=== PATIENT | female | born 1995 | race Caucasian/White ===

== ENCOUNTER → 2016-03-03 | Outpatient (CLI) | payer OTHER ==
[2016-03-03 14:14] LABS: BASO # 0.2 K/mm3 (0.0-0.2); BASO % 1.3 % (0.0-1.0); EOS # 0.1 K/mm3 (0.0-0.50); EOS % 0.9 % (0.0-3.0); LARGE UNSTAINED CELL # 0.2 K/mm3 (0.0-0.4); LARGE UNSTAINED CELL % 1.5 % (0.0-4.0); LYMPH # 2.8 K/mm3 (1.5-6.5); MEAN CORPUSCULAR HGB CONC 34.6 g/dl (32.0-36.5); MEAN CORPUSCULAR VOLUME 83.9 fl (80.0-96.0); MONO # 0.5 K/mm3 (0.0-0.8); MONO % 4.3 % (0.0-5.0); NEUTROPHILS # 7.5 K/mm3 (1.8-7.7); PLATELET COUNT, AUTOMATED 315 k/mm3 (150-450); RED CELL DISTRIBUTION WIDTH 12.4 % (11.5-14.5); WHITE BLOOD COUNT 11.1 K/mm3 (4.0-10.0)
[2016-03-03 15:29] LABS: HBsAg Prenatal NEGATIVE (NEGATIVE)
[2016-03-04 12:36] LABS: HIV SCRN NEGATIVE (NEGATIVE); HIV SCRN1 NEGATIVE (NEGATIVE)
[2016-03-04 12:37] LABS: CONTROL LINE INT CTR LINE PRESENT
== END ==
LOC: M LAB 13:47
PROVIDERS: ATTEND Advanced Practice Midwife
DX: Z34.81 Encounter for supervision of other normal pregnancy, first trimester (principal)

== ENCOUNTER → 2016-04-15 | Outpatient (CLI) | payer OTHER | LOC: M SMT 10:01 | PROVIDERS: ATTEND Advanced Practice Midwife | DX: Z36 Encounter for antenatal screening of mother (principal) ==

== ENCOUNTER → 2016-05-21 | Outpatient (CLI) | payer OTHER ==
--- NOTE | 2016-05-21 12:24 | REP ---
Clinical: Anatomical evaluation. Comparison: None . Findings: Examination demonstrates a single live intrauterine in breech presentation. motion is identified by technologist. Placenta is noted show posteriorly and grade zero without evidence for placenta previa or abruption. Amniotic fluid volume is normal. Cervix measures 4.0 cm in length and appears closed. No evidence for nuchal cord. Gestational age by LMP 19 weeks 3 days with CÉSAR 10/12/2016 . Gestational age by current measurements 19 weeks 4 days with CÉSAR 10/11/2016 . FHR equals 136 beats per minute. BPD 4.4 cm 19 weeks 1 day HC 16.6 cm 19 weeks 2 days AC 14.9 cm 20 weeks 1 day FL 3.1 cm 19 weeks 4 days HL 2.9 cm 19 weeks 4 days HC/AC ratio 1.12 Estimated weight 313 grams ( 61st percentile). Anatomical assessment demonstrates normal structures including cranium, choroid plexus, cavum, cerebellum/posterior fossa, facial features, lungs, four-chamber heart/ventricular outflow tracts, diaphragm, stomach, cord insertion/three-vessel cord, kidneys/bladder, spine, and extremities. Impression: Single live intrauterine in breech presentation demonstrating appropriate interval growth. Anatomical assessment is complete and normal. Signed by Shane Kearns MD 05/21/2016 12:16 P
== END ==
LOC: M RAD 10:02
PROVIDERS: ATTEND Advanced Practice Midwife
DX: Z36 Encounter for antenatal screening of mother (principal); Z3A.19 19 weeks gestation of pregnancy

== ENCOUNTER → 2016-07-03 | Outpatient (CLI) | payer OTHER ==
[2016-07-03 12:00] LABS: MEAN CORPUSCULAR HEMOGLOBIN 31.4 pg (27.0-33.0); MEAN CORPUSCULAR HGB CONC 33.9 g/dl (32.0-36.5); MEAN CORPUSCULAR VOLUME 92.5 fl (80.0-96.0); RED CELL DISTRIBUTION WIDTH 13.2 % (11.5-14.5); WHITE BLOOD COUNT 9.1 K/mm3 (4.0-10.0)
== END ==
LOC: M LAB 10:04
PROVIDERS: ATTEND Obstetrics & Gynecology
DX: Z34.02 Encounter for supervision of normal first pregnancy, second trimester (principal)

== ENCOUNTER → 2016-09-12 | Outpatient (REF) | payer OTHER ==
[~2016-09-12] MED LIST: COLA100C5 PO; DIBU10OI TOP; MILKSUS PO; MOTR200T44 PO; PRENTAB55 PO; TYLE325T5 PO
== END ==
LOC: M LAB REF 12:38
PROVIDERS: ATTEND Advanced Practice Midwife
DX: Z36 Encounter for antenatal screening of mother (principal)

== ENCOUNTER 2016-10-07 12:30 | Inpatient (IN) | payer OTHER ==
[~2016-10-07] VITALS: Ht 172.7 cm; Wt 92.0 kg
[2016-10-07] VITALS (9 sets, daily range): BP systolic 95–135; BP diastolic 52–75
[2016-10-07 14:32] LABS: MEAN CORPUSCULAR HEMOGLOBIN 32.5 pg (27.0-33.0); MEAN CORPUSCULAR HGB CONC 35.8 g/dl (32.0-36.5); MEAN CORPUSCULAR VOLUME 90.7 fl (80.0-96.0); RED CELL DISTRIBUTION WIDTH 13.1 % (11.5-14.5); WHITE BLOOD COUNT 9.9 K/mm3 (4.0-10.0)
[2016-10-07 15:35] LABS: ALT/SGPT 17 U/L (12-78); AST/SGOT 18 U/L (15-37); BILIRUBIN,TOTAL 0.2 MG/DL (0.2-1.0); CREATININE FOR GFR 0.66 MG/DL (0.55-1.02); GLOMERULAR FILTRATION RATE > 60.0 (>60); URIC ACID 4.2 MG/DL (2.6-6.0)
[2016-10-07] MEDS ORDERED: LACTATED RINGER'S 1000 ML IV STA (15:40)
[2016-10-07] MEDS ORDERED: LR 1,000 ML IV SCH (15:40)
[2016-10-07] MEDS: miSOPROStol 50 MCG 1/2 TAB (S0191) SL SCH ×2 (16:49→21:08)
[2016-10-08] VITALS (49 sets, daily range): BP systolic 97–139; BP diastolic 51–96
[2016-10-08] MEDS: miSOPROStol 50 MCG 1/2 TAB (S0191) SL SCH ×2 (01:55→07:54)
[2016-10-08] MEDS ORDERED: LR 1,000 ML IV SCH (12:09)
[2016-10-08] MEDS ORDERED: OXYTOCIN DRIP 30 UNITS in APPROPRIATE DILUENT 1 EA IV SCH ×2 (12:15→23:15)
[2016-10-08 14:52] LABS: MEAN CORPUSCULAR HEMOGLOBIN 31.6 pg (27.0-33.0); MEAN CORPUSCULAR HGB CONC 34.5 g/dl (32.0-36.5); MEAN CORPUSCULAR VOLUME 91.5 fl (80.0-96.0); RED CELL DISTRIBUTION WIDTH 12.8 % (11.5-14.5); WHITE BLOOD COUNT 14.4 K/mm3 (4.0-10.0)
[2016-10-08] MEDS ORDERED: FENTANYL 2MCG/ML ROPIVACAINE 0.2% IN 0.9% NACL 200ML IVBAG As Ordered ONE (14:58)
[2016-10-08] MEDS ORDERED: REFRIGERATOR IV KEYS XX PRN (16:00)
[2016-10-08] MEDS ORDERED: FENTANYL/ROPIVACAINE/NACL BAG 200 ML EPIDURAL SCH (16:00)
[2016-10-08] MEDS ORDERED: EPIDURAL COMMENT XX SCH (16:00)
[2016-10-08] MEDS ORDERED: LACTATED RINGER'S 1000 ML IV PRN (16:00)
[2016-10-08] MEDS ORDERED: NALOXONE INJ 0.4 MG/1 ML VIAL (J2310) IV PRN (16:00)
[2016-10-08] MEDS ORDERED: EPIDURAL/PCA KEYS XX PRN (16:00)
[2016-10-08] MEDS ORDERED: ONDANSETRON 4MG/2ML VIAL (J2405) IV PRN (16:00)
[2016-10-08] MEDS ORDERED: diphenhydrAMINE INJ 50MG/ML VIAL (J1200) IV PRN (16:00)
[2016-10-08] MEDS ORDERED: ePHEDrine SULFATE 25 MG/5 ML(5MG/ML) SYRINGE IV PRN (16:00)
[2016-10-08] MEDS ORDERED: ANUSOL HC CREAM 30GM TOP PRN (23:15)
[2016-10-08] MEDS ORDERED: MEASLES,MUMPS,RUBELLA VACCINE INJ (MMR-II) (90707) SC SCH (23:15)
[2016-10-08] MEDS ORDERED: METHYLERGONOVINE MALEATE 0.2 MG TAB PO PRN (23:15)
[2016-10-08] MEDS ORDERED: RHOGAM 300 MCG (1500 IU) INJ (J2790) IM SCH (23:15)
[2016-10-08] MEDS ORDERED: DOCUSATE SODIUM 100 MG CAP PO PRN (23:15)
[2016-10-08] MEDS ORDERED: DIBUCAINE 1% OINTMENT 30GM TOP PRN (23:15)
[2016-10-08] MEDS ORDERED: MOM 30ML SUSPENSION UDC PO PRN (23:15)
[2016-10-09] MEDS: ACETAMINOPHEN 500 MG TAB PO PRN (00:24)
[2016-10-09 00:30] VITALS: BP 128/68
[2016-10-09 06:15] VITALS: BP 120/69
[2016-10-09] MEDS: PRENATAL VITAMINS CHEWABLE TABLET PO SCH (07:49)
[2016-10-09] MEDS: IBUPROFEN 800 MG TAB PO PRN (07:50)
--- NOTE | 2016-10-09 13:16 | DN ---
DATE OF DELIVERY: 10/08/2016 TIME OF : 2035 hours. GENDER: Female. SCORE: 9 and 9. WEIGHT: 6 pounds 11 ounces or 3118 grams. ANESTHESIA: Epidural. LACERATIONS: First degree midline laceration. COUNTS: 5 laparotomy sponges accounted for prior to and after delivery. One Sharp removed from the delivery field. DELIVERY NOTE: On 10/08/2016, at 2035 hours, Mrs. Killian, a 21-year-old, 2, now para 1, had a spontaneous vaginal delivery of a liveborn female . Time of was 2035 hours. score was 9 and 9. Weight was 6 pounds 11 ounces or 3118 grams. Head was delivered occiput anterior (OA). There was a nuchal cord, which was manually reduced, followed by delivery of anterior and posterior shoulder and corpus. was then handed to mom with a good cry. Cord was clamped times two, and was cut by the father of the baby under my direction. Cord blood was then obtained. Placenta was drained and delivered grossly intact. A premixed bag of 500 mL of normal saline with 30 units of Pitocin was then bolused along with uterine massage until uterus was firm. On inspection, there was a first degree midline laceration, which was repaired with #3-0 Vicryl Rapide. On re-inspection, cervix, vagina and perineum was grossly intact. Mom and baby recovered in stable condition.
[2016-10-09 18:56] VITALS: BP 120/75
[2016-10-10] MEDS: ACETAMINOPHEN 500 MG TAB PO PRN (03:13)
[2016-10-10 06:20] VITALS: BP 126/79
[2016-10-10] MEDS: PRENATAL VITAMINS CHEWABLE TABLET PO SCH (08:18)
[2016-10-10] MEDS: IBUPROFEN 800 MG TAB PO PRN (08:19)
[2016-10-10] MEDS ORDERED: PRENTAB55 PO (09:08)
[2016-10-10] MEDS ORDERED: MILKSUS PO (09:08)
[2016-10-10] MEDS ORDERED: DIBU10OI TOP (09:08)
[2016-10-10] MEDS ORDERED: MOTR200T44 PO (09:08)
[2016-10-10] MEDS ORDERED: TYLE325T5 PO (09:08)
[2016-10-10] MEDS ORDERED: COLA100C5 PO (09:08)
== END 2016-10-10 09:40 | disposition home or self-care (01) | DRG 775 ==
LOC: M LDI 12:30 → M OBS 10-09 00:14
PROVIDERS: ADMIT Obstetrics & Gynecology; ATTEND Obstetrics & Gynecology
PROC: 3E0P7GC Introduction of Other Therapeutic Substance into Female Reproductive, Via Natural or Artificial Opening (ICD-10-PCS; 2016-10-07)
PROC: 10E0XZZ Delivery of Products of Conception, External Approach (ICD-10-PCS; principal; 2016-10-08)
PROC: 0HQ9XZZ Repair Perineum Skin, External Approach (ICD-10-PCS; 2016-10-08)
DX: O13.4 Gestational [pregnancy-induced] hypertension without significant proteinuria, complicating childbirth (principal); Z3A.39 39 weeks gestation of pregnancy; O70.0 First degree perineal laceration during delivery; Z37.0 Single live birth